=== PATIENT | female | born 2000 | race Caucasian/White ===

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

== ENCOUNTER 2019-04-27 14:48 | Outpatient (REF) | payer MEDICAID, SELFPAY ==
[2019-04-30 14:26] LABS: Chlamydia Result Negative (Negative); GC Result Negative (Negative)
== END 2019-04-27 15:08 ==
LOC: LBN 14:48
PROVIDERS: PCP Family Medicine; Visit Provider Nurse Practitioner Family
DX: Z11.3 Encounter for screening for infections with a predominantly sexual mode of transmission (principal)
CPT/HCPCS: 87491; 87591

== ENCOUNTER 2021-06-26 03:00 | Outpatient (CLI) | payer OTHER, MEDICAID, SELFPAY ==
--- NOTE | 2021-06-26 07:00 | DI.US_ITS ---
Exam(s) US OB 1ST TRIMESTER EXAM: US OB 1ST TRIMESTER CLINICAL HISTORY: ? viability,z34.90. TECHNIQUE: First trimester obstetrical ultrasound was performed. COMPARISON: No exams were available for comparison FINDINGS: Uterus is anteverted, measuring 9.5 cm length by 6.1 AP by 8.7 cm. There is an area of fluid in the right-side of the uterine fundus level which may represent a gestati onal sac. This measures approximately 2 by 1 cm. Does not appear to contain no obvious pole n or visible yolk sac. Maternal ovaries: Both ovaries appear unremarkable. There is some fluid in the cul-de-sac and left adnexa. IMPRESSION:: Intrauterine fluid-probable gestational sac without an obvious yolk sac nor pole noted therein. There is some free fluid in the cul-de-sac and left adnexa Correlation with test recommended. DATA REPOSITORY:
== END 2021-06-26 03:20 ==
PROVIDERS: PCP Family Medicine; Visit Provider Obstetrics & Gynecology
DX: Z34.91 Encounter for supervision of normal pregnancy, unspecified, first trimester (principal)
CPT/HCPCS: 76801

== ENCOUNTER 2021-06-26 11:38 | Outpatient (CLI) | payer OTHER, MEDICAID, SELFPAY | END 2021-06-26 11:39 | disposition home or self-care (01) | LOC: LBO 11:40 | PROVIDERS: PCP Family Medicine; Visit Provider Obstetrics & Gynecology Gynecology | DX: O03.9 Complete or unspecified spontaneous abortion without complication (principal); Z67.91 Unspecified blood type, Rh negative | CPT/HCPCS: 36415; 86850; 86900; 86901; 90384; 84702 ==

== ENCOUNTER 2021-07-12 20:25 | Emergency (ER) | payer OTHER, MEDICAID, SELFPAY ==
[2021-07-12 20:35] VITALS: BP 130/74; PULSE 85; RESP 16; TEMP 37.1; O2SAT 100
--- NOTE | 2021-07-12 20:43 | W.ED.GENAD ---
Discharge Plan Disposition Patient Disposition: HOME Condition: Stable Discharge Details Clinical Impression: Miscarriage, threatened, early Primary Care Provider: Mariola Hoff ED Provider: Lashay Thomas Home Meds and New Rx's Prescriptions: No Action prenat.vits,cheryl,[id number] Tablet 1 tab PO DAILY 0RF Discharge Instructions Instructions: Threatened Miscarriage (ED) Additional Instructions: At this time looks like you may be at risk for a miscarriage. Please follow-up with an ultrasound tomorrow as diagnostic imaging instruct you. Call women's wellness in the a.m. to discuss the recommendations. Return to the ER for any worsening vaginal bleeding, soaking through 2 pads an hour or more, feeling weak dizzy lightheaded or near faint. Increase oral fluids, eat regularly. You may take Tylenol every 4-6 hours as needed for abdominal cramping. Referrals: Mariola Hoff [Primary Care Provider] - Mae Ulloa DO [OSTEOPATHIC DOCTOR] - 2 days Medical Decision Making 21-year-old female presents to the ER with chief complaint of abdominal cramping and past a clot and some vaginal spotting approximately 2 hours prior to arrival. Patient states that she went to the bathroom and passed a clot greater than one quarter dark maroon in color and since then has had some abdominal cramping. She also reports some spotting with urination here on arrival. She is prima . Approximately 8 weeks per ultrasound. She is Rh- and received RhoGam June 26. 2217: CBC, BMP within normal limits, urinalysis shows no evidence for urinary tract infection no leukocytes no nitrites. Beta hCG quant is 9009 which is moderately decreased compared to her last visit on June 26 which at that time it was 94,000 Pelvic exam performed with Sammie LONG as witness through the entire exam. Patient tolerated well. Cervix was visualized with closed cervical os however there is a constant bloody ooze from the cervical os. There was blood in the vaginal canal with small clots. Discussed plan of care with patient and threatened miscarriage. Instructed to present tomorrow for an ultrasound and either follow-up in the ER for results or with women's wellness. Instructed to increase oral fluids and take Tylenol if needed. Patient verbalized understanding. I did discuss strict return instructions and to return to the ER sooner if soaking through more than 2 pads an hour, feeling lightheaded dizzy or faint. Patient verbalized understanding. This text was generated using [employer] dictation system, please disregard any oddities of phrase or misspellings. Medical Records Medical records reviewed: Yes I reviewed the patient's medical records. Medical records narrative: Patient is Rh- and received RhoGam June 26, 2021 according to records on June 26, 2021 hCG quant was 94,923 HPI General Date/Time Provider Initiated Documentation: 07/12/21 20:31. Limitations to Documentation: no limitations. Information obtained by: patient, RN notes reviewed and old records reviewed. HPI Narrative: 21-year-old female presents to the ER with chief complaint of abdominal cramping and past a clot and some vaginal spotting approximately 2 hours prior to arrival. Patient states that she went to the bathroom and passed a clot greater than one quarter dark maroon in color and since then has had some abdominal cramping. She also reports some spotting with urination here on arrival. She is prima . Approximately 8 weeks per ultrasound. She is Rh- and received RhoGam June 26. Related Data Home Medications Medication Instructions Recorded Confirmed prenat.vits,cheryl,[id number] 1 tab PO DAILY 06/15/21 07/12/21 Allergies Allergy/AdvReac Type Severity Reaction Status Date / Time Penicillins AdvReac Intermediate Verified 07/12/21 20:51 ENVIRONMENTAL Allergy Mild Uncoded 07/12/21 20:51 General SHARLENE: 3 Review of Systems All systems reviewed & are unremarkable except as noted in HPI and below Gastrointestinal Gastrointestinal: Reports abdominal pain (cramping) Genitourinary Genitourinary: Reports as per HPI and Reports abnormal vaginal bleeding PFSH All Active Problems (Updated 07/12/21 @ 22:24 by Lashay Thomas) Miscarriage, threatened, early (Acute) Rh negative state in antepartum period (Acute) Spontaneous (Acute) Early stage of (Acute) Dysmenorrhea (Acute) Family History Father Hypertension Mother Fibromyalgia Social History Smoking/Tobacco Use Status: Never Smoking risk assessment performed?: Yes Alcohol Intake: never Drug use: Never Substance use type: does not use Counseling given: No Do you feel safe at home: Yes Do you feel safe in your relationship?: Yes Female Reproductive History Menstrual control method: none History History 0 Para 0 Hx # Term Pregnancies Multiple births Hx # Pregnancies Ectopic pregnancies AB induced Hx Number of Living Children AB spontaneous Exam Narrative Exam Narrative: Constitutional: Alert and oriented x3. Appears stated age. Normal body habitus. Head: Normocephalic, no trauma. Eyes: Pupils PERRL, Red reflex noted, EOM's intact. Eyelids symmetrical without lesions, discharge, or swelling. Chest: RRR, Normal S1, S2, distal pulses intact. Resp: Lungs clear to auscultation bilaterally, no wheezes, rales, or rhonchi. Abdomen: Soft, non-distended, Normoactive bowel sounds all 4 quads. : See Below Musculoskeletal: Normal gait, 5/5 strength to all four extremities. Skin: No suspicious rashes or lesions. Capillary refill less than 2 sec. Neurologic: Cranial nerves II-XII intact. Alert and oriented x 3. Motor: No deficits noted. Sensory: Intact bilaterally all 4 extremities. Reflexes: DTR's intact bilaterally.. Hematologic/Lymphatic: No ecchymosis, no lymphadenopathy. External Female Exam: normal external appearance Speculum Exam - Vagina: vaginal bleeding Speculum Exam - Cervix: closed (However, steady bloody ooze from Cevical os) and no lesions OB/External & Speculum: vaginal bleeding
[2021-07-12 21:18] LABS: Bilirubin Negative (Negative); Blood Trace-intact (Negative); Clarity Clear (Clear); Glucose Negative (Negative); Ketones Negative (Negative); Leukocyte Esterase Negative (Negative); Nitrite Negative (Negative); Specific Gravity >= 1.030 (1.005-1.025); Urobilinogen 0.2 EU/dL (Up TO 0.2)
[2021-07-12 21:23] LABS: Bacteria Rare HPF (Negative); C & S Indicated? No; Casts Negative LPF (Negative); Crystals Negative HPF (Negative); Epithelial Cells Rare HPF (Negative); Mucus Negative (Negative); RBC 0-2 HPF (0-2); WBC Negative HPF (0-5)
[2021-07-12 21:26] LABS: Abs Immature Grans 0.03 10^3/uL (0.0-0.06); Absolute Basophil Count 0.06 10^3/uL (0.0-0.2); Absolute Eosinophil Count 0.05 10^3/uL (0.0-0.7); Absolute Monocyte Count 0.49 10^3/uL (0.1-0.8); Absolute Neutrophil Count 5.71 10^3/uL (1.2-6.7); Basophils % 0.7; Eosinophils % 0.6; HCT 36.7 % (36.0-46.0); HGB 12.4 g/dL (11.2-15.7); Immature Grans % 0.3; Lymphocytes % 28.3; MCH 29.1 pg (27.0-33.0); MCHC 33.8 % (32.0-36.0); MCV 86.2 fL (80-95); MPV 10.1 fL (8.0-11.0); Monocytes % 5.5; Neutrophils % 64.6; Nucleated RBC 0 %; Platelet Count 236 10^3/uL (130-400); RBC 4.26 10^6/uL (3.93-5.22); RDW-SD 40.8 fL; WBC 8.84 10^3/uL (4.4-10.8)
[2021-07-12 22:02] LABS: Anion Gap 12.4 mmol/L (3-11); BUN 9 mg/dL (7-18); CO2 24.6 mmol/L (21.0-32.0); CREATININE 0.6 mg/dL (0.55-1.02); Calcium 9.4 mg/dL (8.5-10.1); Chloride 101 mmol/L (98-107); Glucose 96 mg/dL (74-106); HCG Quant, Pregnancy 9009 mIU/mL (1-3); Potassium 3.7 mmol/L (3.5-5.1); Sodium 138 mmol/L (136-145)
--- NOTE | 2021-07-12 22:28 | NUR.NOTE ---
ultrasound Requisition faxed to [facility] for 07/13/21. Patient will call [facility] to see if she can be seen 07/13/21 after Ultrasound, otherwise she will f/u in ED.Nursing Note:
== END 2021-07-12 22:32 | disposition home or self-care (01) ==
PROVIDERS: Emergency Provider Registered Nurse Emergency; PCP Family Medicine
DX: O20.0 Threatened abortion (principal); Z3A.08 8 weeks gestation of pregnancy
CPT/HCPCS: 36415; 80048; 99284; 81003; 81015; 84702; 85025; 99283

== ENCOUNTER 2021-07-20 03:20 | Outpatient (CLI) | payer OTHER, MEDICAID, SELFPAY ==
[2021-07-20 13:59] LABS: HCG Quant, Pregnancy 281 mIU/mL (1-3)
== END 2021-07-20 03:21 | disposition home or self-care (01) ==
LOC: LBO 03:20
PROVIDERS: PCP Family Medicine; Visit Provider Obstetrics & Gynecology
DX: O20.0 Threatened abortion (principal)
CPT/HCPCS: 36415; 84702

== ENCOUNTER 2021-07-28 02:49 | Outpatient (CLI) | payer OTHER, MEDICAID, SELFPAY ==
[2021-07-28 11:41] LABS: HCG Quant, Pregnancy 57 mIU/mL (1-3)
== END 2021-07-28 02:50 | disposition home or self-care (01) ==
LOC: LBO 02:49
PROVIDERS: Obstetrics & Gynecology; PCP Family Medicine; Visit Provider Advanced Practice Midwife
DX: O20.0 Threatened abortion (principal)
CPT/HCPCS: 36415; 84702

== ENCOUNTER 2021-08-04 04:27 | Outpatient (CLI) | payer OTHER, MEDICAID, SELFPAY ==
[2021-08-04 12:39] LABS: HCG Quant, Pregnancy 21 mIU/mL (1-3)
== END 2021-08-04 04:28 | disposition home or self-care (01) ==
LOC: LBO 04:27
PROVIDERS: PCP Family Medicine; Visit Provider Obstetrics & Gynecology
DX: O03.9 Complete or unspecified spontaneous abortion without complication (principal)
CPT/HCPCS: 36415; 84702

== ENCOUNTER 2021-08-11 03:24 | Outpatient (CLI) | payer OTHER, MEDICAID, SELFPAY ==
[2021-08-11 11:33] LABS: HCG Quant, Pregnancy 8 mIU/mL (1-3)
[2021-08-12 10:15] LABS: HIV-1/2 Ag & Ab Screen Negative (Negative)
[2021-08-12 10:56] LABS: Hepatitis A Antibody IgM Negative (Negative); Hepatitis B Core Antibody Negative (Negative); Hepatitis B surface Ag Negative (Negative); Hepatitis C Ab w Rflx HCV PCR Negative (Negative)
[2021-08-12 11:49] LABS: Syphilis Serology (RPR) Negative (Negative)
[2021-08-12 15:25] LABS: Chlamydia Result Negative (Negative); GC Result Negative (Negative)
== END 2021-08-11 03:25 | disposition home or self-care (01) ==
LOC: LBO 03:24
PROVIDERS: PCP Family Medicine; Visit Provider Obstetrics & Gynecology
DX: A64 Unspecified sexually transmitted disease (principal); O03.9 Complete or unspecified spontaneous abortion without complication; Z11.3 Encounter for screening for infections with a predominantly sexual mode of transmission; Z11.4 Encounter for screening for human immunodeficiency virus [HIV]
CPT/HCPCS: 36415; 86704; 86709; 86803; 87340; 87389; 87491; 87591; 84702; 86592; 87480; 87510; 87660

== ENCOUNTER 2021-08-11 15:42 | Outpatient (REF) | payer OTHER, MEDICAID, SELFPAY | END 2021-08-11 15:43 | disposition home or self-care (01) | LOC: LBN 15:42 | PROVIDERS: PCP Family Medicine; Visit Provider Obstetrics & Gynecology ==

== ENCOUNTER 2021-09-08 01:42 | Outpatient (CLI) | payer OTHER, MEDICAID, SELFPAY ==
[2021-09-08 12:37] LABS: HCG Quant, Pregnancy 2 mIU/mL (1-3)
== END 2021-09-08 01:43 | disposition home or self-care (01) ==
LOC: LBO 01:43
PROVIDERS: PCP Family Medicine; Visit Provider Obstetrics & Gynecology
DX: N91.0 Primary amenorrhea (principal)
CPT/HCPCS: 36415; 84702

== ENCOUNTER 2023-05-30 03:57 | Outpatient (CLI) | payer BC, SELFPAY ==
[2023-05-30 15:37] LABS: Panorama Kit Sent via Fed Ex
[2023-05-30 15:51] LABS: Abs Immature Grans 0.02 10^3/uL (0.0-0.06); Absolute Basophil Count 0.05 10^3/uL (0.0-0.2); Absolute Eosinophil Count 0.02 10^3/uL (0.0-0.7); Absolute Lymphocyte Count 1.94 10^3/uL (1.2-3.4); Absolute Monocyte Count 0.44 10^3/uL (0.1-0.8); Absolute Neutrophil Count 6.43 10^3/uL (1.2-6.7); Basophils % 0.6; Eosinophils % 0.2; HCT 34.2 % (36.0-46.0); Immature Grans % 0.2; Lymphocytes % 21.8; MCH 29.6 pg (27.0-33.0); MCHC 35.1 % (32.0-36.0); MCV 84 fL (80-95); MPV 10.8 fL (8.0-11.0); Monocytes % 4.9; Neutrophils % 72.3; Platelet Count 235 10^3/uL (130-400); RBC 4.06 10^6/uL (3.93-5.22); RDW 13.2 % (11.7-14.6); RDW-SD 40.1 fL
[2023-05-30 23:47] LABS: Hepatitis B Surface Ag Negative (Negative)
[2023-05-31 00:15] LABS: Hepatitis C Ab w Rflx HCV PCR Negative (Negative)
[2023-05-31 00:27] LABS: HIV-1/2 Ag & Ab Screen Negative (Negative)
[2023-05-31 10:53] LABS: Varicella IgG Antibody Negative (See Note)
[2023-05-31 10:58] LABS: Rubella IgG Ab (UVM) Positive (See Note)
[2023-06-01 16:27] LABS: Syphilis IgG w/Reflex Nonreactive (Nonreactive)
[2023-06-07 12:16] LABS: Specimen WB Whole Blood
[2023-06-14 13:41] LABS: Result Summary NEGATIVE; Specimen WB Whole Blood
== END 2023-05-30 03:58 | disposition home or self-care (01) ==
PROVIDERS: Advanced Practice Midwife; PCP Family Medicine; Visit Provider Advanced Practice Midwife
DX: Z34.91 Encounter for supervision of normal pregnancy, unspecified, first trimester
CPT/HCPCS: 36415; 81220; 81222; 81329; 86787; 86803; 86850; 86900; 86901; 87340; 87389; 85025; 86762; 86780; 86870

== ENCOUNTER 2023-05-30 14:10 | Outpatient (REF) | payer BC, SELFPAY ==
[2023-05-30 17:02] LABS: *AMPHETAMINES SCREEN URINE Negative (Negative); *BARBITURATES SCREEN URINE Negative (Negative); *BENZODIAZEPINES SCREEN URINE Negative (Negative); Cannabinoids THC Negative (Negative); Cocaine Screen,Urine Negative (Negative); METHADONE URINE SCREEN Negative (Negative); OPIATES URINE SCREEN Negative (Negative)
[2023-05-30 17:14] LABS: Tricyclic Antidepressants Negative (Negative)
[2023-06-03 11:10] LABS: Misc Referral (UVM) See Comments
[2023-06-04 10:13] LABS: Buprenorphine Negative ng/mL (Cutoff: 5.0); Norbuprenorphine Negative ng/mL (Cutoff: 2.5)
== END 2023-05-30 14:11 | disposition home or self-care (01) ==
LOC: LBN 14:10
PROVIDERS: PCP Family Medicine; Visit Provider Advanced Practice Midwife
DX: Z34.91 Encounter for supervision of normal pregnancy, unspecified, first trimester
CPT/HCPCS: 80307; 80348; 80354; 87086

== ENCOUNTER → 2023-09-20 04:20 | Outpatient (CLI) | payer BC, SELFPAY ==
--- NOTE | 2023-09-20 06:45 | DI.US_ITS ---
Exam(s) US OB VALENTIN WEIGHT EXAM: US OB VALENTIN WEIGHT CLINICAL HISTORY: uterine fibroid affecting ,d25.9,O34.10. TECHNIQUE: Transabdominal obstetrical ultrasound performed. COMPARISON: US POCUS EXAM from 05/16/2023 FINDINGS: Transabdominal obstetrical ultrasound performed. FINDINGS: Number of fetuses: One. position: Vertex. heart rate: 154 bpm. Placental location: Anterior no evidence of previa. BIOMETRIC DATA: EFW: 1298 grms 43% Composite Age: 29+ 2 EDC: 04 December 2023 Amniotic fluid index: 15.0 cm. Amount of fluid is within normal limits. An anterior fibroid is noted measuring 2.9 x 1.4 x 2.5 IMPRESSION: 1. Biometric measurements correspond to 29 weeks 2 days, within the normal range. 2. Normal VALENTIN. 3. Small anterior fibroid. DATA REPOSITORY:
== END ==
PROVIDERS: PCP Family Medicine; Visit Provider Advanced Practice Midwife
DX: O34.13 Maternal care for benign tumor of corpus uteri, third trimester (principal); D25.9 Leiomyoma of uterus, unspecified; Z3A.28 28 weeks gestation of pregnancy
CPT/HCPCS: 76816

== ENCOUNTER 2023-09-20 05:01 | Outpatient (CLI) | payer BC, SELFPAY ==
[2023-09-20 10:53] LABS: HCT 30.4 % (36.0-46.0); HGB 10.1 g/dL (11.2-15.7); MCH 29.2 pg (27.0-33.0); MCHC 33.2 % (32.0-36.0); MCV 88 fL (80-95); MPV 9.8 fL (8.0-11.0); Platelet Count 238 10^3/uL (130-400); RBC 3.46 10^6/uL (3.93-5.22); RDW 12.6 % (11.7-14.6); RDW-SD 40.4 fL; WBC 10.28 10^3/uL (4.4-10.8)
[2023-09-20 11:05] LABS: Glucose,1 Hr (Glucola) 91 mg/dL (80-140)
== END 2023-09-20 05:02 | disposition home or self-care (01) ==
LOC: LBO 05:01
PROVIDERS: PCP Family Medicine; Visit Provider Advanced Practice Midwife
DX: Z34.93 Encounter for supervision of normal pregnancy, unspecified, third trimester (principal); Z3A.28 28 weeks gestation of pregnancy
CPT/HCPCS: 36415; 82950; 85027; 86850; 90384

== ENCOUNTER 2023-10-04 14:39 | Outpatient (REF) | payer BC, SELFPAY ==
[2023-10-04 17:26] LABS: *AMPHETAMINES SCREEN URINE Negative (Negative); *BARBITURATES SCREEN URINE Negative (Negative); *BENZODIAZEPINES SCREEN URINE Negative (Negative); Cannabinoids THC Negative (Negative); Cocaine Screen,Urine Negative (Negative); METHADONE URINE SCREEN Negative (Negative); OPIATES URINE SCREEN Negative (Negative); Tricyclic Antidepressants Negative (Negative)
[2023-10-05 11:39] LABS: Fentanyl Scr w/Rfx Confirm Negative ng/mL (<1)
[2023-10-08 11:41] LABS: Buprenorphine Negative ng/mL (Cutoff: 5.0); Norbuprenorphine Negative ng/mL (Cutoff: 2.5)
== END 2023-10-04 14:40 | disposition home or self-care (01) ==
LOC: LBN 14:39
PROVIDERS: PCP Family Medicine; Visit Provider Obstetrics & Gynecology
DX: Z34.93 Encounter for supervision of normal pregnancy, unspecified, third trimester (principal); Z3A.30 30 weeks gestation of pregnancy
CPT/HCPCS: 80307; 80348

== ENCOUNTER → 2023-10-18 03:28 | Outpatient (CLI) | payer BC, SELFPAY ==
--- NOTE | 2023-10-18 10:45 | DI.US_ITS ---
Exam(s) US OB VALENTIN WEIGHT EXAM: US OB VALENTIN WEIGHT CLINICAL HISTORY: growth, check fibroid,d25.9,o34.10. TECHNIQUE: Transabdominal obstetrical ultrasound was performed. COMPARISON: US US OB VALENTIN WEIGHT from 09/20/2023 FINDINGS: There is a single viable intrauterine gestation with cardiac activity identified-141 bpm The fetus is presently in cephalic position . Amniotic fluid: There is upper normal amount of amniotic fluid with an VALENTIN of 22.32 cmcm. Placental location: The placenta is anterior grade 1,with no evidence of placenta previa. Dating parameters place this at approximately 33 weeks gestational age, implying JEMIMA of 10/2023. BPD measures 33 weeks and 3 days HC measures 33 weeks and 2 days AC measures 32 weeks and 4 days FL measures 32 weeks and 3 days Estimated weight is 8 gm-4 pounds 8 ounces Fetus is at the 39th percentile on the Hadlock scale. IMPRESSION:: Viable 3rd trimester gestation, as described above. Amount of amniotic fluid is upper normal. DATA REPOSITORY:
== END ==
PROVIDERS: PCP Family Medicine; Visit Provider Obstetrics & Gynecology
DX: Z34.93 Encounter for supervision of normal pregnancy, unspecified, third trimester (principal); O34.13 Maternal care for benign tumor of corpus uteri, third trimester; Z3A.30 30 weeks gestation of pregnancy
CPT/HCPCS: 76816

== ENCOUNTER → 2023-11-11 00:22 | Outpatient (CLI) | payer MEDICAID, SELFPAY ==
--- NOTE | 2023-11-11 15:23 | DI.US_ITS ---
Exam(s) US OB VALENTIN WEIGHT EXAM: US OB VALENTIN WEIGHT CLINICAL HISTORY: Uterine fibroids in , D25.9,O34.10 ?growth and assess fibroid size. TECHNIQUE: Transabdominal obstetrical ultrasound performed. COMPARISON: US US OB VALENTIN WEIGHT from 10/18/2023 FINDINGS:: Number of fetuses: One. position: Vertex. Placental location: Anterior no evidence of previa. Anterior fundal uterine fibroid noted measuring 3.6 x 1 by 3.1 cm compared with 3.1 x 1.9 x 2.7 cm pr ior exam. BIOMETRIC DATA: BPD: 88mm = 35+5 weeks HC: 334mm = 38+ 1 weeks AC: 327mm = 36+ 4 weeks FL: 67 mm = 34+2 weeks EFW: 2846 Gms = 50% Composite Age: 36+ 1 weeks JEMIMA: 08 December 2023 Heart Rate: 151 BPM Amniotic fluid index: 20.6 cm. Amount of fluid is visually within normal limits. IMPRESSION: size and weight are within the expected range. Slight increase in size of fundal fibroid. DATA REPOSITORY:
== END ==
PROVIDERS: PCP Family Medicine; Visit Provider Advanced Practice Midwife
DX: O34.10 Maternal care for benign tumor of corpus uteri, unspecified trimester (principal); D25.9 Leiomyoma of uterus, unspecified
CPT/HCPCS: 76816

== ENCOUNTER 2023-11-15 13:42 | Outpatient (REF) | payer MEDICAID, SELFPAY | END 2023-11-15 13:43 | disposition home or self-care (01) | LOC: LBN 13:42 | PROVIDERS: PCP Family Medicine; Visit Provider Advanced Practice Midwife | DX: Z34.90 Encounter for supervision of normal pregnancy, unspecified, unspecified trimester (principal) | CPT/HCPCS: 87081 ==

== ENCOUNTER 2023-11-17 08:13 | Outpatient (CLI) | payer MEDICAID, SELFPAY ==
[2023-11-17 14:27] LABS: HCT 29.1 % (36.0-46.0); HGB 9.5 g/dL (11.2-15.7); MCHC 32.6 % (32.0-36.0); MCV 80 fL (80-95); MPV 11.3 fL (8.0-11.0); Platelet Count 224 10^3/uL (130-400); RBC 3.65 10^6/uL (3.93-5.22); RDW 13.4 % (11.7-14.6); RDW-SD 38.6 fL; WBC 10.14 10^3/uL (4.4-10.8)
[2023-11-17] MEDS: IRON SUCROSE COMPLEX 200 MG in Normal Saline 100 ML 440 MG IVPB (14:29)
== END 2023-11-17 15:24 ==
LOC: BCD 08:13 → OBS 14:04
PROVIDERS: PCP Family Medicine; Visit Provider Advanced Practice Midwife
DX: O99.013 Anemia complicating pregnancy, third trimester (principal)
CPT/HCPCS: 85027; 96365; J1756

== ENCOUNTER 2023-11-30 01:35 | Outpatient (RCR) | payer MEDICAID, SELFPAY ==
[2023-11-23] MEDS: Normal Saline Flush 10 ML SYR IVP (13:06)
[2023-11-23] MEDS: IRON SUCROSE COMPLEX 200 MG in Normal Saline 100 ML 440 MG IVPB (13:06)
[2023-11-30 14:28] LABS: HGB 10.3 g/dL (11.2-15.7)
[2023-11-30] MEDS: IRON SUCROSE COMPLEX 200 MG in Normal Saline 100 ML 440 MG IVPB (14:42)
[2023-11-30] MEDS: Normal Saline Flush 10 ML SYR IVP (14:43)
== END 2023-11-30 23:59 | disposition home or self-care (01) ==
LOC: INF 01:35
PROVIDERS: PCP Family Medicine; Visit Provider Advanced Practice Midwife
DX: O99.013 Anemia complicating pregnancy, third trimester (principal)
CPT/HCPCS: 36415; 96365; 85018; J1756

== ENCOUNTER 2023-12-10 10:25 | Outpatient (CLI) | payer MEDICAID, SELFPAY ==
[2023-12-10 12:35] VITALS: BP 129/77; PULSE 81; TEMP 36.9
[2023-12-10 12:36] VITALS: BP 129/77; PULSE 81
--- NOTE | 2023-12-10 13:18 | W.PM.OBNL1 ---
Date of service: 12/10/23 Time of Service: 13:18 Pelvic Exam Dilation: 1.5 Effacement (%): 80 station: -3 Cervix Position: posterior Consistency: soft BISHOPS Score(Cervical Ripeness Score): 6 Nitrazine: Positive Ferning: Present Comments: SROM clear fluid confirmed Contractions Monitor Mode: External Contraction Frequency(min): none Fetus A Monitor: External (US) Heart Rate Baseline: 130 Presentation: Cephalic Variability: Moderate (6-25 BPM) Categories: Category I Accelerations: 15 X 15 Decelerations: None Amniotic Membrane Status: Ruptured Rupture Method: Spontaneous Amniotic Fluid: Clear Amount: moderate Date of Membrane Rupture: 12/09/23 Time of Membrane Rupture: 21:30 Assessment and Plan Assessment and plan (1) PROM (premature rupture of membranes): Status: Acute Assessment and plan: A: 23 yo G1 @ 40+2 wks; reactive NST/cat 1 tracing SROM clear confirmed, since 2129 yesterday; no labor though cvx is favorable (BS=6) GBS negative, Rh negative, cephalic presentation, vss P: Pt clearly and at multiple points in conversation declines induction of labor at this time I strongly suggested she set a date/time to return for induction if labor does not start Pt agrees to return tomorrow morning 0900 if no labor onset Will call for painful contractions q4-5 minutes, bleeding, or other warning signs we reviewed Discharged to home accompanied by her mother Qualifiers: PROM gestational age: full term Objective Pulse BP 81 129/77 12/10/23 12:36 12/10/23 12:36 Vital Signs Reviewed: Yes Objective Narrative Objective Narrative: Risks and benefits of IOL for PROM at term discussed with pt, i.e. infection, distress, arrested labor Afebrile, normotensive, NST is reactive, fluid is clear, GBS negative Pt is very firm she declines induction at this time, wishes to try activities at home to get contractions going Advised to avoid anything placed in the vagina at all, no sexual intercourse, tampons, or fingers Sx labor reviewed with pt, also reviewed warning sx i.e. fever, abd pain, vaginal irritation or change in discharge color, bleeding Baby is active today, AGA and favorable cervix (Khan score 6) Subjective Interval history since last seen: Her water broke at 2129 last night, clear fluid. Pt paged CNM at 0040 to notify and to report mild irregular contractions and that when they get stronger she will come in. The contractions stopped and she fell asleep eventually, waking up at 1000. She agrees to come in for an NST and ROM confirmation, adamantly declines induction of labor for PROM at this time, wishes to go home and wait for spontaneous onset of labor.
--- NOTE | 2023-12-10 13:41 | W.OBNST ---
Date of service: 12/10/23 Time of Service: 13:41 NST Evaluation Reason for NST Reasons for Nonstress Test: OTHER, SEE COMMENT Reason for NST Other: R/O rupture Gestational Age Gestational Age in Weeks and Days: 40 Weeks and 2Days Test and Monitor Explained Test/Monitor Explained: Test Explained, Monitor Explained and Patient Verbalized Understanding Vital Signs Blood Pressure: 129/77 Pulse: 81 Temperature: 98.4 F NST Information Date on Monitor: 12/10/23 Time on Monitor: 12:35 Date off Monitor: 12/10/23 Time off Monitor: 13:18 Total Time on Monitor: 43 NST Interventions: None Contraction Frequency: none NST Evaluation Patient States Movement: Present FHR Baseline: 125 Variability: Moderate 6-25 bpm Accelerations: 15x15 Decelerations: None NST Results: Reactive Note Ultrasound Done: N/A. NST Note Note: SROM confirmed, clear fluid Cvx 1-2/80% vtx -3 posterior, soft Pt insists she will go home now and return when labor begins She agrees to schedule IOL for tomorrow 0900 if no labor by then Warning sx reviewed in detail for when to call or come back to unit See Progress note NST Reviewed and Verified by: Rosalva Dalal
[2023-12-10 13:44] VITALS: BP 129/77; PULSE 81; TEMP 36.9
== END 2023-12-10 12:40 | disposition other institution (70) ==
LOC: BCD 10:26 → OBS 12:27
PROVIDERS: PCP Family Medicine; Visit Provider Advanced Practice Midwife
DX: O42.92 Full-term premature rupture of membranes, unspecified as to length of time between rupture and onset of labor (principal); Z3A.40 40 weeks gestation of pregnancy
CPT/HCPCS: 59025

== ENCOUNTER 2023-12-10 23:37 | Inpatient (IN) | payer MEDICAID, SELFPAY ==
[2023-12-10 23:57] VITALS: BP 129/81; PULSE 171; PULSE 88; O2SAT 98
[2023-12-10 23:58] VITALS: BP 129/81; PULSE 88; RESP 16; TEMP 36.5; O2SAT 98
--- NOTE | 2023-12-10 23:59 | W.PM.OBHPL1 ---
Date of service: 12/10/23 Time of Service: 23:59 Assessment and Plan Assessment and plan (1) PROM (premature rupture of membranes): Status: Acute Assessment and plan: A: 23 yo @ 40+3 wks, PROM x26 hrs clear fluid Was in for evaluation yesterday and declined admission or IOL, Spontaneous onset of contractions 2230 (this evening) GBS neg, Rh neg, afebrile, normotensive Category 1 tracing, early labor, favorable cvx (BS 7-8) P: Admit to BC, CBC, T&S; minimal vaginal exams Expectant management, pt desires unmedicated labor at this time Consider ATB prophylaxis if ROM >36 hrs, Anticipate Qualifiers: PROM gestational age: full term PROM onset of labor timing: onset of labor more than 24 hours following rupture Qualified Code(s): O42.12 - Full-term premature rupture of membranes, onset of labor more than 24 hours following rupture OB-HPI Labor/Delivery History of Present Illness Reason for Visit: Labor Chief Complaint: Uterine Contractions; Maternal Discomfort , Associated Signs and Symptoms of Maternal Discomfort: contractions started 2230, no bleeding, no vomiting. Confirmed PROM for 26 hours.. JEMIMA Calculator Estimated Delivery Date Method Current WG Current Estimate 12/08/23 LMP (Certain) 40w 3d Other Estimates 12/12/23 Ultrasound #1 39w 6d History of Present Expected Delivery Route/Plan - CNM FOB/ - Juan Manuel Short (first child) BB- Varicella non-immune, offer vaccine Mom Mae & Juan Manuel for labor support, wants to be active, use nitrous, shower, tub, dim lights GBS negative Specific Issues/Plan 1. Pt's sister has Brugada Syndrome, pt w/hx tachycardia & palpitations 1a. Accepts referral for M consult, level 2 ultrasound & genetics teleconsult 1b. Level 2 scan is nml, retroplacental fibroid, [facility] recommends referral to either cardiology or genetics, & inform Peds of fam hx- [place] [facility] [place] testing. 1c. Growth US at 28 weeks: 43rd%, VALENTIN 15, small anterior fibroid, 1d. 32 wks: EFW in 39th%, VALENTIN 22, cephalic, anterior placenta, fibroid 3.1 X 1.9 X 2.7 1e. 36 wks: EFW 50th percentile, VALENTIN 20, fundal fibroid measures 3.6 x 1.0 x 3.1 2. Hx migraine and anxiety, no meds, PHQ9 score is 2 3. 5P's screen positive, UDS @ initial & 28 wks 4. Rh negative, partner RHpos. RhoGam @ 28 wks 09/20/23 4a. Had spotting 1st trimester, RhoGam given at [facility] 5. cfDNA low risk male, CF Neg/SMA Neg 6. Anemia @ 28 wks, hgb 10.1, start oral iron tabs 11/14 - hgb 9.4, iron infusions ordered 6a. 11/29 - Hgb 10.3, 12/06 - hgb 10.9 Assessment: History Reviewed & Current Review of Systems Narrative: ROS completed and found to be noncontributory PFSH All Active Problems (Updated 12/11/23 @ 00:04 by Rosalva Dalal) PROM (premature rupture of membranes) (Acute) Anemia affecting (Acute) Uterine fibroids affecting (Acute) Susceptible to varicella (non-immune), currently (Acute) History of palpitations in adulthood (Acute) Family history of Brugada syndrome (Acute) pt's sister Migraine (Chronic) (Acute) Acute adjustment disorder with mixed anxiety and depressed mood (Acute) Rh negative state in antepartum period (Acute) Medical History (Updated 12/11/23 @ 00:04 by Rosalva Dalal) Family history of cardiac disorder in mother pt's mother has hole in her heart. Patent Foramen ovale Anxiety Depressed affect Spontaneous Missed menses Delayed menses STI (sexually transmitted infection) Dysmenorrhea Family History Father Hypertension Mother Fibromyalgia Social History Smoking/Tobacco Use Status: Never Smoking risk assessment performed?: Yes Alcohol Intake: never Drug use: Never Substance use type: does not use Counseling given: No Do you feel safe at home: Yes Do you feel safe in your relationship?: Yes Female Reproductive History Menstrual control method: none History History 2 Para 0 Hx # Term Pregnancies 0 Multiple births 0 Hx # Pregnancies 0 Ectopic pregnancies 0 AB induced 0 Hx Number of Living Children 0 AB spontaneous 1 Past Pregnancies Del. Date GA/Weeks # Preg Succ Route Wgt Sex Labor Lgth Anesthesia Location Prov Complic 07/28/21 12 No Meds Allergies and Home Medications Allergies Allergy/AdvReac Type Severity Reaction Status Date / Time Penicillins AdvReac Intermediate OTHER Verified 12/07/23 11:14 lactose AdvReac Diarrhea Verified 12/07/23 11:14 ENVIRONMENTAL Allergy Mild OTHER Uncoded 12/07/23 11:14 Home Medications ?Medication ?Instructions ?Recorded ?Confirmed ?Type prenat.vits,cheryl,pyh-syaf-utrus 1 tab PO DAILY 06/15/21 12/11/23 History ferrous sulfate 325 mg (65 mg 325 mg PO DAILY #60 tabs 09/20/23 12/11/23 Rx iron) tablet Exam Physical Exam Vital signs: Pulse BP Pulse Ox 171 H 129/81 98 12/10/23 23:57 12/10/23 23:57 12/10/23 23:57 Vital Signs Reviewed: Yes Constitutional Constitutional: mild distress, average body habitus and cooperative Detailed Labor and Delivery Exam Dilation: 3 Effacement (%): 90 station: -2 Cervix position: posterior Consistency: soft DORSEY Score(Cervical Ripeness Score): 7 Amniotic Membrane Status: Ruptured (since 2129 on 12/08) Rupture Method: Spontaneous Amniotic Fluid: Clear Nitrazine: Positive Ferning: Present Monitor Mode: External Contraction Frequency(min): 3-5 Contraction Intensity: Mild/Moderate Fetus A Heart Rate Baseline: 130 Monitor Accelerations: Present Monitor Decelerations: None Variability: Moderate (6-25 BPM) Categories: Category I Est. Weight: 6 lb 9.822 oz Est. Weight: 3000 gms Date of Membrane Rupture: 12/09/23 Time of Membrane Rupture: 21:30 HEENT Exam HEENT Exam: Normal Neck Exam Neck Exam: Normal Chest/Brest/Axilla Exam Chest Exam: Normal Breast Exam Breast Exam: Not Done Respiratory Exam Respiratory Exam: Normal Cardiovascular Exam Cardiovascular Exam: Normal Abdominal Exam Abdominal Exam: Normal Rectal Exam Rectal Exam: Normal Exam Exam: Normal Extremities Exam Extremities Exam: Normal Back/Spine/Pelvis Exam Back Exam: Normal Pelvis Adequate: Yes Skin Exam Skin Exam: Normal Neurological Exam Neurological Exam: Normal Psychiatric Exam Psychiatric Exam: Normal Results Results Group Beta Strep: Negative Blood Type: O- Rubella Status: Immune Varicella Immunity: Nonimmune Risk Assessment Risk for Shoulder Dystocia Historical/Initial OB: NEGATIVE FOR: Pelvic Abnormality, Pre- BMI>30, Previous Shoulder Dystocia or Previous Macrosomia 36 Weeks: NEGATIVE FOR: Current Gestational DM, EFW>4500gms or Maternal Weight Gain>40lbs 40 Weeks: NEGATIVE FOR: EFW> 4500 gms, Maternal Weight Gain >40lb or Post Dates Increased Risk?: No Delivery Plan @ 36wks: Delivery Plan @ 40 wks: Risk for Pre-Eclampsia Date Initiated/Initials: not indicated, JK Yes, if one or more: NEGATIVE FOR: Hx Pre-E/Gest HTN, Chronic HTN, Multiple Gestation, Pre-gestational DM, Renal Disease, Systemic Lupus or APA Syndrome Yes, if 2 or more: POSITIVE FOR: Nulliparity; NEGATIVE FOR: Age>= 35 yrs, >10yr btwn pregnancies, BMI>30, ethinicty, Mother/Sister w/ Pre-E or Previous IUGR Risk for Post- Hemorrhage Initial: NEGATIVE FOR: Multiple Gestation, Previous PPH, Known Clotting Deficiency, Grand Multiparity or Anticoagulation 36 Weeks: POSITIVE FOR: Anemia, hgb<10; NEGATIVE FOR: Low platelets(thrombocytopenia), Gestational HTN or Pre-E, Polyhydraminios or EFW>4500gms 40 Weeks: NEGATIVE FOR: Anemia, hgb<10, Low platelets (thrombocytopenia), Gestation HTN or Pre-E, Polyhydraminios or EFW>4500gms At Risk?: No Interventions: received iron infusions for anemia Risks Reviewed Risks Reviewed Upon Admission: Yes
[2023-12-11] VITALS (76 sets, daily range): BP systolic 109–145; BP diastolic 56–89; PULSE 73–140; RESP 16–18; TEMP 36.4–37.2; O2SAT 95–100; BMI 27.4
[2023-12-11 00:30] LABS: HGB 11.1 g/dL (11.2-15.7); MCH 27.8 pg (27.0-33.0); MCHC 32.6 % (32.0-36.0); MCV 85 fL (80-95); MPV 11.3 fL (8.0-11.0); Platelet Count 190 10^3/uL (130-400); RBC 3.99 10^6/uL (3.93-5.22); WBC 12.56 10^3/uL (4.4-10.8)
[2023-12-11 00:48] LABS: RDW 20.1 % (11.7-14.6); RDW-SD 60.8 fL
--- NOTE | 2023-12-11 07:50 | W.PM.OBNL1 ---
Date of service: 12/11/23 Time of Service: 07:50 Informed Consent Informed Consent: Other (IV access for hydration and antibiotics) Pelvic Exam Dilation: 6 Effacement (%): 100 station: -1 Cervix Position: anterior Consistency: soft Contractions Monitor Mode: Palpation Contraction Frequency(min): 4-5 Intensity: Moderate Fetus A Monitor: Doppler Heart Rate Baseline: 130 FHR Rhythm: Regular Characteristics: Normal Amniotic Membrane Status: Ruptured Assessment and Plan Assessment and plan (1) PROM (premature rupture of membranes): Status: Acute Assessment and plan: A: Spontaneous progression to 6/100% -1 Maternal fatigue, prolonged ROM >34 hrs Reassuring FHT per godwin, pt afebrile P: Begin IV PCN prophylaxis, based on pt report allergy to PCN is unlikely Discussed choice of ATB and overall pt status with Dr. Staton Pt gives consent to IV hydration and PCN prophylaxis I reviewed pain management options & recommended pitocin augmentation now Will continue discussion once IV therapies are in progress Qualifiers: PROM onset of labor timing: onset of labor more than 24 hours following rupture PROM gestational age: full term Qualified Code(s): O42.12 - Full-term premature rupture of membranes, onset of labor more than 24 hours following rupture Objective Abnormal lab results 12/11/23 Range/Units 00:22 WBC 12.56 H (4.4-10.8) 10^3/uL Hgb 11.1 L (11.2-15.7) g/dL Hct 34.0 L (36.0-46.0) % RDW 20.1 H (11.7-14.6) % MPV 11.3 H (8.0-11.0) fL Temp Pulse Resp BP Pulse Ox 98.2 F 79 16 128/89 99 12/11/23 06:02 12/11/23 06:02 12/11/23 06:02 12/11/23 06:02 12/11/23 06:02 Laboratory Results WBC 12.56 10^3/uL (4.4-10.8) H 12/11/23 00:22 RBC 3.99 10^6/uL (3.93-5.22) 12/11/23 00:22 Hgb 11.1 g/dL (11.2-15.7) L 12/11/23 00:22 Hct 34.0 % (36.0-46.0) L 12/11/23 00:22 MCV 85 fL (80-95) 12/11/23 00:22 MCH 27.8 pg (27.0-33.0) 12/11/23 00:22 MCHC 32.6 % (32.0-36.0) 12/11/23 00:22 RDW 20.1 % (11.7-14.6) H 12/11/23 00:22 Plt Count 190 10^3/uL (130-400) 12/11/23 00:22 MPV 11.3 fL (8.0-11.0) H 12/11/23 00:22 ABO/Rh O Negative 12/11/23 00:22 Antibody Screen POSITIVE 12/11/23 00:22 Antibody Identification Anti-D 12/11/23 00:22 Vital Signs Reviewed: Yes Subjective Interval history since last seen: Pt has ambulated, showered, using nitrous and now in the tub. States she is feeling tired, requests vaginal exam, asking about other choices in pain management. We discussed IV narcotic analgesia and epidural anesthesia, pt is considering these options. pt consents to IV access and IV hydration, she also consents to IV antibiotics for prophylaxis due to prolonged ROM @ 34 hrs. We discussed the notation in her chart of PCN allergy, neither she nor her mother recall why this is in the chart, deny hx of adverse even during pt's lifetime.
[2023-12-11] MEDS: Lactated Ringers 1,000 ML 999 ML IV (08:20)
[2023-12-11] MEDS: Normal Saline Flush 10 ML SYR IVP ×2 (08:20→10:09)
[2023-12-11] MEDS: Penicillin G POT. 5,000,000 UNITS in Normal Saline 100 ML 200 UNITS IVPB (08:42)
--- NOTE | 2023-12-11 09:56 | W.PM.OBNL1 ---
Date of service: 12/11/23 Time of Service: 09:57 Informed Consent Informed Consent: Risk,Benefits,Alternatives Discussed and Other (narcotic analgesia) Contractions Monitor Mode: External (Novii) Contraction Frequency(min): q2-3 Contraction Duration(sec): 50 Intensity: Moderate Fetus A Monitor: External (US) (Novii) Heart Rate Baseline: 140 Variability: Moderate (6-25 BPM) Categories: Category I Accelerations: 15 X 15 Decelerations: None Amniotic Membrane Status: Ruptured Assessment and Plan Assessment and plan (1) PROM (premature rupture of membranes): Status: Acute Assessment and plan: A: Need for pain management, pitocin augmentation indicated Has received first dose of PCN and bolus of LR Category 1 tracing P: Notified Peds of pt status (Dr. Hoffmann) Fentanyl 50 mcg ordered, recheck cvx 1030 Planning pitocin augmentation if cvx <8 cm dilation Anticipate today Qualifiers: PROM onset of labor timing: onset of labor more than 24 hours following rupture PROM gestational age: full term Qualified Code(s): O42.12 - Full-term premature rupture of membranes, onset of labor more than 24 hours following rupture Subjective Interval history since last seen: Got out of tub, using nitrous while resting in bed, requests narcotic analgesia. Discussed side effects of using fentanyl in small doses including sedation, perceived inadequate pain relief, and possibility of slowing labor progress which has already been slow, pt agrees to vaginal exam after initial narcotic dose and will consider agreeing to pitocin augmentation if progress is inadequate.
[2023-12-11] MEDS: fentaNYL 100 MCG/2 ML VIAL 50 MCG IVP ×2 (10:08→14:01)
[2023-12-11] MEDS: Lactated Ringers 1,000 ML 250 ML IV (11:26)
[2023-12-11] MEDS: Penicillin G POT. 3,000,000 UNITS in Normal Saline 50 ML 100 UNITS IVPB ×3 (12:34→22:00)
--- NOTE | 2023-12-11 13:04 | W.PM.OBNL1 ---
Date of service: 12/11/23 Time of Service: 13:04 Informed Consent Informed Consent: Augmentation of Labor and Risk,Benefits,Alternatives Discussed Pelvic Exam Dilation: 6 Effacement (%): 100 station: -1 Contractions Monitor Mode: External (Novii) Contraction Frequency(min): q2-4 Intensity: Moderate Fetus A Monitor: External (US) (Novii) Heart Rate Baseline: 140 Variability: Moderate (6-25 BPM) Categories: Category I Decelerations: None Amniotic Membrane Status: Ruptured Assessment and Plan Assessment and plan (1) PROM (premature rupture of membranes): Status: Acute Assessment and plan: A: Pt declined vaginal exam until now; no change from 0730 exam Had some rest from Fentanyl dose; finishing 2nd liter LR, voiding qs 2nd dose of PCN prophylaxis infusing now, category 1 tracing P: Begin pitocin augmentation, R&B reviewed with pt, she consents Offer all comfort measures as needed, fentanyl can be redosed as ordered Anticipate Qualifiers: PROM onset of labor timing: onset of labor more than 24 hours following rupture PROM gestational age: full term Qualified Code(s): O42.12 - Full-term premature rupture of membranes, onset of labor more than 24 hours following rupture
[2023-12-11] MEDS: Oxytocin/Normal Saline 30 UNIT/500 ML BAG 2 UNITS IV (13:24)
[2023-12-11] MEDS: Lactated Ringers 1,000 ML 150 ML IV ×2 (16:01→23:51)
--- NOTE | 2023-12-11 16:38 | W.PM.OBNL1 ---
Date of service: 12/11/23 Time of Service: 16:38 Informed Consent Informed Consent: Augmentation of Labor, Regional Anesthesia and Risk,Benefits,Alternatives Discussed Pelvic Exam Dilation: 6.5 Effacement (%): 100 station: 0 (vtx well applied to cvx which feels tight on scalp) Contractions Monitor Mode: External (Novii) Contraction Frequency(min): q2-4 Intensity: Moderate/Strong Fetus A Monitor: External (US) (Novii) Heart Rate Baseline: 140 Variability: Moderate (6-25 BPM) Categories: Category I (earlier category 2 due to periodic variable decels which have decreased with maternal position changes) Accelerations: 15 X 15 Decelerations: Early Amniotic Membrane Status: Ruptured Assessment and Plan Assessment and plan (1) PROM (premature rupture of membranes): Status: Acute Assessment and plan: A: Maternal fear and exhaustion, poor coping, need for effective pain management Active labor with pitocin augmentation, overall good descent & tolerance of labor P: PRO[employer] CONSULTANT paged for epidural placement Anticipate after pt more comfortable and rests well Qualifiers: PROM onset of labor timing: onset of labor more than 24 hours following rupture PROM gestational age: full term Qualified Code(s): O42.12 - Full-term premature rupture of membranes, onset of labor more than 24 hours following rupture Objective Vital Signs Reviewed: Yes Objective Narrative Objective Narrative: Afebrile, normotensive Amniotic fluid draining from introitus clear and blood tinged Category 1 tracing currently descent to 0 station, 6-7 cm dilation 3rd PCN dose infusing, Pitocin at 10 u/min, 3rd liter of LR up, voiding qs, pt supported bedside by her mother and Using nitrous constantly, had a 2nd dose of fentanyl IVP with good effect now wearing off Subjective Interval history since last seen: Pt crying, states I can't do this, reaffirms her fear of needles and interventions, states she really wants to avoid a c/s but she wants to be done. Advised that an effective epidural would allow her to feel less pain and possibly rest a little bit until it is time to push, pt consents to regional anesthesia.
[2023-12-11] MEDS: FentaNYL/ROPIvacaine 2 mcg/ml and 0.1% 200 ML CADD Cassette EP (18:00)
--- NOTE | 2023-12-11 18:17 | ANES.PREOP_ITS ---
General Info Date of Service Date Performed: 12/11/23 Height: 5 ft 2 in Weight: 68.039 kg Body Mass Index (BMI): 27.4 Meds Allergies and Home Medications Allergies Allergy/AdvReac Type Severity Reaction Status Date / Time lactose AdvReac Diarrhea Verified 12/07/23 11:14 ENVIRONMENTAL Allergy Mild OTHER Uncoded 12/07/23 11:14 Home Medication ?Medication ?Instructions ?Recorded prenat.vits,cheryl,ypk-[id number]-[id number] 1 tab PO DAILY 06/15/21 ferrous sulfate 325 mg (65 mg 325 mg PO DAILY #60 tabs 09/20/23 iron) tablet Current Visit Medications: Current Medications Generic Name Dose Route Start Last Admin Trade Name Freq PRN Reason Stop Dose Admin Diphenhydramine HCl 25 mg 12/11/23 09:25 Diphenhydramine 50 Mg/Ml Vial IVP PRN PRN Fentanyl 50 mcg 12/11/23 13:38 12/11/23 14:01 Fentanyl 100 Mcg/2 Ml Vial IVP 50 mcg Q2H PRN PRN Administration Fentanyl/Ropivacaine 200 ml 12/11/23 16:45 Fentanyl/Ropivacaine 2 Mcg/Ml And 0.1% 200 Ml Cadd Cassette EP DIRECTED MAKI Ringer's Solution 1,000 mls @ 250 mls/hr 12/11/23 08:00 12/11/23 16:02 IV 12/12/23 11:59 Infused INFUSION MAKI Infusion Penicillin G Potassium 3,000, 50 mls @ 100 mls/hr 12/11/23 13:00 12/11/23 16:30 000 units/ Sodium Chloride IVPB 100 mls/hr Q4H MAKI Administration Ringer's Solution 1,000 mls @ 150 mls/hr 12/11/23 13:15 12/11/23 16:01 IV 150 mls/hr INFUSION MAKI Administration Oxytocin/Sodium Chloride 30 unit in 500 mls @ 2 mls/hr 12/11/23 13:15 12/11/23 16:00 Pitocin/Normal Saline IV 12 milliunits/min INFUSION MAKI 12 mls/hr Titration Protocol 2 MILLIUNITS/MIN IV Miscellaneous Supplies 1 each 12/11/23 08:00 Iv Access IV DIRECTED MAKI Sodium Chloride 0 ml 12/11/23 07:55 12/11/23 10:09 Normal Saline Flush 10 Ml Syr IVP 10 ml PRN PRN Administration Sodium Chloride 0 ml 12/11/23 08:30 12/11/23 08:20 Normal Saline Flush 10 Ml Syr IVP 10 ml BID MAKI Administration Sodium Chloride 0 ml 12/11/23 07:55 Normal Saline 10 Ml Vial IJ DIRECTED PRN PFSH Active Problems Active Problems: Problem Status Onset Code PROM (premature rupture of membranes) Acute O42.90 Anemia affecting Acute O99.019 Uterine fibroids affecting Acute O34.10, D25.9 Susceptible to varicella (non-immune), currently Acute O09.899, Z28.39 History of palpitations in adulthood Acute Z86.79 Family history of Brugada syndrome Acute Z82.49 Migraine Chronic G43.909 Acute Z34.90 Acute adjustment disorder with mixed anxiety and depressed mood Acute F43.23 Rh negative state in antepartum period Acute O26.899, Z67.91 Medical History Medical History (Updated 12/11/23 @ 00:04 by Rosalva Dalal) Family history of cardiac disorder in mother pt's mother has hole in her heart. Patent Foramen ovale Anxiety Depressed affect Spontaneous Missed menses Delayed menses STI (sexually transmitted infection) Dysmenorrhea Tobacco Smoking/Tobacco Use Status: Never Passive smoking exposure: No Alcohol Alcohol Intake: never Substance Use Substance use: Never Substance use type: does not use Prental History History 2 2 Para 0 Hx # Term Pregnancies 0 Multiple births 0 Hx # Pregnancies 0 Ectopic pregnancies 0 AB induced 0 Hx Number of Living Children 0 AB spontaneous 1 Past Pregnancies Del. Date GA/Weeks # Preg Succ Route Wgt Sex Labor Lgth Anesth esia Location [facility] [place] 07/28/21 12 No Vital Signs and Lab Results Vital Signs Most Recent Vital Signs in EMR: Most Recent Vital Signs Temp Pulse Resp BP Pulse Ox 36.8 C 105 H 16 123/58 L 99 12/11/23 18:09 12/11/23 18:17 12/11/23 18:09 12/11/23 18:13 12/11/23 18:17 Lab Results 12/11/23 00:22 Blood Type / Crossmatch: 2 Antibody Screen POSITIVE 12/11/23 Complete Blood Count: 2 White Blood Count 12.56 10^3/uL (4.4-10.8) H 12/11/23 00:22 Red Blood Count 3.99 10^6/uL (3.93-5.22) 12/11/23 00:22 Hemoglobin 11.1 g/dL (11.2-15.7) L 12/11/23 00:22 Hematocrit 34.0 % (36.0-46.0) L 12/11/23 00:22 Platelet Count 190 10^3/uL (130-400) 12/11/23 00:22 Complete Metabolic Panel: 2 No Data to Display Liver Function Panel: 2 No Data to Display Coagulation Panel: 2 No Data to Display Cardiac Panel: 2 No Data to Display Arterial Blood Gas: 2 No Data to Display Venous Blood Gas: 2 No Data to Display Pancreas Panel: 2 No Data to Display Thyroid Panel: 2 No Data to Display Infectious Disease: 2 No Data to Display Blood Cultures: 2 No Data to Display Toxicology Panel: 2 No Data to Display Panel: 2 No Data to Display Anesthesia Assessment and Plan Anesthesia History Personal History: No History of Anesthesia Complications Family History: No Family History of Anesthesia Complications Exercise Tolerance Exercise Tolerance: Metabolic Equivalents>4 Pertinent Negatives Pertinent Negatives: No Symptoms of GERD Cardiac & Pulmonary Exam Cardiac Exam: Normal S1/S2 Heart Sounds Pulmonary Exam: Clear Bilateral Breath Sounds Implantable Cardiac Device Does patient have a Pacemaker or an ICD?: No Airway Exam Known Difficult Airway: No Mallampati Class: 2 Mouth Opening: Normal (> 3cm) Thyromental Distance: Greater than 3 cm Neck Range of Motion: Full ROM Neck Circumference: Normal Teeth Condition: Normal Dentition ASA Classification ASA Score: ASA 2 Emergency Case?: No NPO Status NPO Status: NPO Clear Liquids>2 hours Status Status: Confirmed (Full Term) Anesthesia Plan Resuscitation Status: Full Code Anesthesia Technique: Labor Epidural Airway Planned: Natural Airway Monitors Used: Standard Monitors Preoperative Comments:: Needle phobia, Anxiety
--- NOTE | 2023-12-11 18:20 | W.ANESNEU ---
Epidural/Spinal Catheter Date Performed: 12/11/23 Procedure Start: 17:20 Procedure Stop: 18:00 Requesting Provider: Rosalva Dalal Procedure Location: Obstetrics Reason Performed: Labor Epidural Standard Monitors Applied: Blood Pressure and SpO2 Patient Position: Sitting Sedation Given (Indicate Dose Given): No Sedation given Patient Mental Status: Awake Sterility: Hand Hygiene, Surgical Cap, Surgical Mask, Sterile Gloves, Sterile Drape/Sheet, Eye Protection and Chlorhexidine Procedure Location: L3-L4 Interspace Epidural Needle: Tuohy 18 Gauge Needle Length: 3.5 Inch Needle Approach: Midline Epidural Procedure: Skin Prepped, Sterile Drape Placed, 1% Lidocaine to skin and subcutaneous tissue with 25G needle, Tuohy Needle placed, Bone Contacted despite needle repositioning, JOSÉ to Saline Used, Epidural Catheter Placed, Negative Heme, Negative CSF Flow and Tuohy Needle Removed Catheter Placed?: Catheter Placed Test Dose (Indicate Dose Given): 3ml 1.5% Lidocaine with 1:200K Epinephrine Given and Negative Test Dose Loss of Resistance Depth (cm): 6 Catheter depth at skin (cm): 12 Dressing: [place]orbaview Dressing Placed, Tegaderm Applied, Mastisol Used and Dressing reinforced with Tape Epidural Provider Bolus (Indicate Dose Given): Total Ropivacaine 0.1% with Fentanyl 2mcg/ml Given from pump. (ml) Dose:: 6cc Additives (Indicate Dose Given ): None Infusion Medication: Medication Infusion Began Medication Infusion: Ropivacaine 0.1% with Fentanyl 2mcg/ml Maintenance Infusion Rate (ml/hour): 9 PCEA Bolus Dose (ml): 5 Post Procedure Pain score (0-10): 1 Block Level: T7 Paresthesia: None Ultrasound: Used to andreia site Number of Attempts (See previous attempts in note section): 2 Procedure Tolerated: No Complications and Patient tolerated well Procedure Outcome: Successful Performed By: Jomar Boone
--- NOTE | 2023-12-11 19:05 | W.PM.OBNL1 ---
Date of service: 12/11/23 Time of Service: 19:05 Informed Consent Informed Consent: Augmentation of Labor, Regional Anesthesia and Risk,Benefits,Alternatives Discussed Pelvic Exam Dilation: 8 station: 0 Contractions Monitor Mode: External (Novii) Contraction Frequency(min): 2-3 Intensity: Moderate/Strong Fetus A Monitor: External (US) (novii) Heart Rate Baseline: 130 Variability: Moderate (6-25 BPM) Categories: Category I Accelerations: 15 X 15 Decelerations: Early Amniotic Membrane Status: Ruptured Assessment and Plan Assessment and plan (1) PROM (premature rupture of membranes): Status: Acute Assessment and plan: A: Moderately effective epidural, pt able to rest between contractions Category 1 tracing, slow progress with pit at 12 u/min P: If no progression in 1 hr propose IUPC to more accurately assess adequacy of contraction pattern Continue pitocin augmentation and PCN prophylaxis Dr. Staton updated on pt status Qualifiers: PROM onset of labor timing: onset of labor more than 24 hours following rupture PROM gestational age: full term Qualified Code(s): O42.12 - Full-term premature rupture of membranes, onset of labor more than 24 hours following rupture (2) Slow slope active phase of labor: Status: Acute Subjective Interval history since last seen: Dozing between contractions since epidural was done, feels what she believes is the baby's shoulder in LLQ, also having some back pain, feels pelvic pressure with contractions and groans/moans with that but relaxes well afterwards.
--- NOTE | 2023-12-11 21:42 | W.PM.OBNL1 ---
Date of service: 12/11/23 Time of Service: 21:42 Informed Consent Informed Consent: Augmentation of Labor, Risk,Benefits,Alternatives Discussed and Other (IUPC and FSE) Pelvic Exam Dilation: 8.5 Effacement (%): 100 station: +1 (molding and caput) Contractions Monitor Mode: Internal Contraction Frequency(min): 2-3 IUPC resting tone (mmHg): 10 IUPC peak pressure (mmHg): 50 IUPC Jakin units: 150 Fetus A Monitor: Internal (FSE) Heart Rate Baseline: 135 Variability: Moderate (6-25 BPM) Categories: Category II Accelerations: 15 X 15 Decelerations: Early and Variable Recurrence: Intermittent Amniotic Membrane Status: Ruptured Assessment and Plan Assessment and plan (1) Slow slope active phase of labor: Status: Acute (2) PROM (premature rupture of membranes): Status: Acute Assessment and plan: A: Prolonged first stage of labor, prolonged ROM 4th PCN dose infusing, epidural in effect; pit @ 20u/min Category 2 due to occasional variable decel, periods of minimal variability interspersed with moderate, early's are recurrent Inadequate uterine contraction pattern w/MVU's <200 P: IUPC and FSE placed for EFM guidance on pitocin titration Dr. Staton aware of current pt and status Will continue pitocin up to 30 u/min for adequate contraction pattern Reassess for progression to 2nd stage in 2 hrs Qualifiers: PROM onset of labor timing: onset of labor more than 24 hours following rupture PROM gestational age: full term Qualified Code(s): O42.12 - Full-term premature rupture of membranes, onset of labor more than 24 hours following rupture Objective Vital Signs Reviewed: Yes Objective Narrative Objective Narrative: Discussion with Dr. Staton regarding slow progress Now 8-9 cm, molding and caput evident, IUPC and FSE inserted with pt consent Pitocin at 20u/min Vital signs stable, afebrile Subjective Interval history since last seen: pt's back still hurts but in general pt has been much more comfortable, dozes between contractions, using nitrous during contractions and is pushing [employer].
[2023-12-12] VITALS (21 sets, daily range): BP systolic 76–136; BP diastolic 50–90; PULSE 84–149; RESP 16–20; TEMP 36.3–37.2; O2SAT 96–100
--- NOTE | 2023-12-12 00:05 | OBCE_ITS ---
Date of service: 12/12/23 Time of Service: 00:06 Assessment and Plan Assessment and plan (1) Slow slope active phase of labor: Status: Acute Assessment and plan: Patient has agreed to a primary delivery for arrest of descent. Informed consent was obtained. I explained to her the risks of the procedure including the risk of infection, damage to surrounding structures including blood vessels bowel bladder ureters. I explained the risk of bleeding possible hysterectomy possible . Her questions were answered. ORT was notified (2) PROM (premature rupture of membranes): Status: Acute Assessment and plan: She has received antibiotics for prolonged rupture membranes with GBS negative rectal vaginal culture. She will received routine preoperative antibiotics prior to surgery. Qualifiers: PROM onset of labor timing: onset of labor more than 24 hours following rupture PROM gestational age: full term Qualified Code(s): O42.12 - Full-term premature rupture of membranes, onset of labor more than 24 hours following rupture History of Present Illness History of Present Illness Chief Complaint: Arrested dilation in labor Narrative: Patient is a 23-year-old G2, P0 female currently 40W 4D EGA who has been followed by the [facility] service for care. Patient has spontaneous rupture of membranes 12/10/2023 with onset of active labor early this morning. At the time of admission to the center she was 5 to 6 cm dilated with contractions. She has gone on to progress to 9 cm dilation after oxytocin augmentation of labor and epidural for labor analgesia. Despite regular painful contractions and seemingly adequate contraction strength as documented by and uterine pressure catheter there has been no descent of the vertex from 0 station throughout the day. She has developed Some molding. heart rate tracing is category 1 with early decelerations of the heart rate with uterine contractions. Based on the patient's protracted labor pattern and no appreciable change in descent of the vertex with 5 hours of oxytocin augmentation I was asked by Vilma Dalal CNM to evaluate the patient for possible delivery. Consults Consult date: 12/10/01 Review of Systems Narrative: Painful contractions involuntary urge to push All systems reviewed & are unremarkable except as noted in HPI and below PFSH All Active Problems (Updated 12/11/23 @ 19:09 by Rosalva Dalal) Slow slope active phase of labor (Acute) PROM (premature rupture of membranes) (Acute) Anemia affecting (Acute) Uterine fibroids affecting (Acute) Susceptible to varicella (non-immune), currently (Acute) History of palpitations in adulthood (Acute) Family history of Brugada syndrome (Acute) pt's sister Migraine (Chronic) (Acute) Acute adjustment disorder with mixed anxiety and depressed mood (Acute) Rh negative state in antepartum period (Acute) Medical History (Updated 12/11/23 @ 19:09 by Rosalva Dalal) Family history of cardiac disorder in mother pt's mother has hole in her heart. Patent Foramen ovale Anxiety Depressed affect Spontaneous Missed menses Delayed menses STI (sexually transmitted infection) Dysmenorrhea Family History Father Hypertension Mother Fibromyalgia Social History Smoking/Tobacco Use Status: Never Smoking risk assessment performed?: Yes Alcohol Intake: never Drug use: Never Substance use type: does not use Counseling given: No Housing: house Do you feel safe at home: Yes Do you feel safe in your relationship?: Yes Female Reproductive History Menstrual control method: none History History 2 2 Para 0 Hx # Term Pregnancies 0 Multiple births 0 Hx # Pregnancies 0 Ectopic pregnancies 0 AB induced 0 Hx Number of Living Children 0 AB spontaneous 1 Past Pregnancies Del. Date GA/Weeks # Preg Succ Route Wgt Sex Labor Lgth Anesth esia Location [facility] 07/28/21 12 No Exam Narrative Exam Narrative: Lying in Semi-Carias's position tolerating regular contractions with the assistance of nitrous oxide Const General: no acute distress Nutritional Appearance: well nourished Orientation: alert, awake and oriented x3 Neck Neck: normal visual inspection Resp Effort & Inspection: normal respiratory effort Auscultation: clear to auscultation bilaterally Cardio Rate: regular rate Rhythm: regular rhythm GI Palpation: other (Gravid) Manual OB Exam: dilated 9, effaced fully, station 0 and other Other: Caput present Skin General skin exam: no rashes or lesions noted Neuro General: deep tendon reflexes 2+ bilaterally Cognition: normal cognition Speech: speech normal Gait: normal gait Motor: other (1 beat of lower extremity clonus bilaterally) Extrem General: normal to inspection Psych Appearance: grossly normal Mental Status: mental status grossly normal Speech and Movement: slurred speech (Patient has been using nitrous oxide for labor analgesia) Mood: congruent mood Affect: normal affect Attitude: cooperative Thought Process: normal Thought Content: normal Insight: fair Judgment: fair Results Last Vital Signs Temp 99.0 F 12/11/23 22:59 Pulse 112 H 12/12/23 00:02 Resp 16 12/11/23 23:00 BP 136/70 12/12/23 00:02 Pulse Ox 100 12/11/23 22:59 Labs 12/11/23 00:22 Labs: Laboratory Results - last 24 hr 12/11/23 00:22 WBC 12.56 H RBC 3.99 Hgb 11.1 L Hct 34.0 L MCV 85 MCH 27.8 MCHC 32.6 RDW 20.1 H Plt Count 190 MPV 11.3 H ABO/Rh O Negative Antibody Screen POSITIVE Antibody Identification Anti-D
[2023-12-12] MEDS: AZITHROMYCIN 500 MG in Normal Saline 250 ML 250 MG IVPB (00:12)
[2023-12-12] MEDS: ceFAZolin 2 GM/50 ML BAG IVPB (01:02)
[2023-12-12] MEDS: Bupivacaine 0.25% Pres-Free 30 ML VIAL (01:20)
--- NOTE | 2023-12-12 01:40 | PLAC_PTH ---
PATIENT: Andres Aviles LOC: OBS U#:[id number] AGE/SX: 23/F ROOM: OBS.303 RE12/10/[address]: Rosalva Dalal CNM : 2000 BED: A DIS: 12/14/2023 SPEC #: [id number] RECD: 12/12/23 12:57 STATUS: ALOK REQ #: [id number] MARA: 12/12/23 01:[address]: Rosalva Dalal DEPT: Surgical Specimen RECD BY: Sue Sagastume ENTERED: 12/12/23 12:57 SP TYPE: PLAC OTHR DR: Mariola Hoff Tissues: 1 - PLACENTA (3RD TRIMESTER) Procedures: GROSS AND MICRO LEVEL 5 Comments: [id number]
[2023-12-12] MEDS: Lactated Ringers 1,000 ML 150 ML IV (02:11)
--- NOTE | 2023-12-12 02:32 | W.PM.OP ---
Date of service: 12/12/23 Time of Service: 02:37 Operative Note Operative Note DATE OF PROCEDURE: 12/12/23 PRE-OP DIAGNOSIS: IUP @ 40w4d EGA. Arrest of descent, prolonged rupture of membranes. POST-OP DIAGNOSIS: same bradycardia in operating room, unplanned maternal intubation PROCEDURE: Primary low-transverse delivery SURGEON: Diamante Staton FRONT END TECHNICIAN: Rosalva Dalal ANESTHESIA TYPE: Local By Surgeon, General LMA/ETT and Spinal Refer to Anesthesia Record ESTIMATED BLOOD LOSS: 700 PATHOLOGY: other (Placenta to pathology. Cord blood to lab. Umbilical arterial blood gas to lab) COMPLICATIONS: None Patient was transported to: PACU Patient's condition: stable Indications: 23-year-old G2 now P1 female with spontaneous rupture membranes x48hr and arrested descent of vertex with regular painful contractions. Pt presented to 12/10/23 ~ 2300 after 24hrs of SROM. She was ines regularly and initial vaginal exam 3cm, -2 station. By 0700 12/11/23 cervix had dilated to 6cm and vertex was -1. 12/11/23 @ 1300 cervical exam with minimal change and 0 station . Oxytocin augmentation of labor was initiated at that time. At the time of her labor epidural placement at 1800 cervical exam was 8cm, 0 station. There was little descent from 0 station at time of vaginal exam at 2300. Caput and moulding present. monitoring strip Category 2 with early decels of FHR with contractions. I counseled pt and her family to proceed with primary delivery for arrest of descent. Findings: Viable male infant in the OP position, clear amniotic fluid, Apgars: 3 at 1 minute, 7 at 5 minutes, 9 at 10minutes. Infant weight: 7lb8oz Umbilical arterial blood gas: pH 7.04, CO2 74. BE -11. Procedure Description: Patient was taken to the operating room she is placed in the sitting position and epidural catheter was removed. The epidural infusion had be stopped approximately one hour prior. Spinal anesthesia was administered without difficulty. She was then placed in the dorsal supine position with a leftward tilt. Auscultation with heart rate by Doppler showed the heart rate to be between 80 and 95 bpm. Decision was made to proceed with the delivery under general anesthesia because of bradycardia. This was explained to the patient and her family member and verbal consent was obtained. SCDs had been in place prior to arrival in the OR. The vagina was prepped with Betadine and a Rossi catheter to gravity drainage was placed. The abdomen was prep sterile drape was applied to the abdomen and a surgical timeout was performed. After general endotracheal anesthesia was administered a Pfannenstiel skin incision was made approximately 2 cm superior to the pubic symphysis using a scalpel and the underlying subcutaneous tissue dissected using a scalpel. The rectus fascia was then nicked in the midline and the fascial incision extended laterally using a scalpel. 2 Hawk clamps were applied to the superior rectus fascia and the rectus fascia was dissected off of the underlying rectus muscles using blunt technique. A similar technique was carried out on the inferior rectus fascia. Rectus muscles were then in the midline and the peritoneum entered bluntly. The peritoneal incision was extended laterally using blunt technique. A bladder blade was inserted to retract the bladder away from the operative field. The vesicle-uterine peritoneum over lower uterine segment was incised using a scalpel and the lower uterine segment incision was extended in a transverse fashion using blunt technique. The amniotic sac was ruptured with clear amniotic fluid noted. A single gloved hand was placed into the uterine cavity and the head was successfully delivered through the uterine incision followed by the trunk and extremities with the assistance of fundal pressure. The cord was doubly clamped and cut and the infant handed off to the waiting pediatric team. A segment of umbilical cord was obtained and the placenta was extracted with a combination of fundal massage and gentle cord traction. The uterus was exteriorized cleared of all clots and debris and the uterine incision reapproximated with a running lock suture of 0 Vicryl followed by a second imbricating suture of 0 Vicryl in interrupted fashion. Two sutures of 0-Vicryl were placed around the L uterine vessels to achieve satisfactory hemostasis. The uterus was returned to the abdomen and the paracolic gutters cleared of all clots and debris. Uterine incision and the along with the bladder flap and the abdominal wall were reinspected and noted to be hemostatic. The rectus fascia was reapproximated with a running suture of 0 Vicryl. space within the subcutaneous tissue closed with a running suture of 2-0 Vicryl. The skin incision was reapproximated with a subcuticular closure of 4-0 Monocryl. Steri strips and a Mepilex dressing was applied. The uterus was massaged for any remaining clots and debris. The patient was transported to recovery area in stable condition. All sponge, lap, and needle counts correct x2.
--- NOTE | 2023-12-12 02:37 | W.ANESNEU ---
Epidural/Spinal Cath. Removal Date Performed: 12/12/23 Procedure Time: 00:55 Catheter Removal Type: Epidural Catheter Procedure Location: Operating Room Patient Position: Sitting Catheter Removal Procedure: Dressing Removed, Catheter Removed without Resistance and Catheter Tip Intact Paresthesia: None Procedure Tolerated: No Complications and Patient tolerated well Procedure Outcome: Successful Performed By: Jomar Boone
--- NOTE | 2023-12-12 02:39 | W.ANESPOSTOP ---
Postoperative Evaluation Date, Time and Location Date Performed: 12/12/23 Time Performed: 02:39 Patient Location: PACU Vital Signs Most Recent Imported Vital Signs: Most Recent Vital Signs Temp Pulse Resp BP Pulse Ox 36.4 C L 125 H 16 115/90 100 12/12/23 02:30 12/12/23 02:36 12/12/23 02:36 12/12/23 02:36 12/12/23 02:36 Pain Score Most Recent Pain Score: Most Recent Pain Score Pain Level 0 12/12/23 02:36 Assessment Mental Status: Awake (Alert & Oriented to Patient Baseline) Airway and Respiratory Function: Patent airway with normal (patient baseline) respiratory exam Cardiovascular Function: Hemodynamically Stable Hydration Status: Adequately Hydrated Nausea & Vomiting: No Nausea or Vomiting Pain: Pt. Denies Any Pain Peripheral Nerve Block: Patient did not receive a nerve block
[2023-12-12] MEDS: Ketorolac 30 MG/ML VIAL IVP ×3 (08:00→20:55)
[2023-12-12] MEDS: Normal Saline Flush 10 ML SYR IVP ×2 (14:11→20:56)
--- NOTE | 2023-12-12 18:28 | W.PM.OBPNV1 ---
Date of service: 12/12/23 Time of Service: 18:28 Assessment and Plan Assessment and plan (1) Arrest of descent, delivered, current hospitalization: Status: Acute (2) delivery delivered: Status: Acute Assessment and plan: Satisfactory recovery from surgery. Plan is to assist with actives of daily living and breast-feeding. Pain well-controlled with nonsteroidal anti-inflammatories. Subjective Subjective Patient comments: Pain well controlled and Tolerating diet [place] baby status: Doing well, Nursing well, Rooming in and Strong Bonding Observed [place] feeding status: Exclusively breast feeding Narrative: Patient reports has been sleepy during the day did latch on earlier today. Exam Physical Exam Vital signs: Temp Pulse Resp BP Pulse Ox 97.9 F 107 H 18 112/71 98 12/12/23 15:15 12/12/23 15:15 12/12/23 15:15 12/12/23 15:15 12/12/23 15:15 Constitutional Constitutional: no acute distress Respiratory Exam Respiratory Exam: Normal Abdominal Exam Comments: Mepilex dressing intact, no drainage present. Fundal Exam Fundus: Below Umbilicus and Firm Extremities Exam Extremity Exam: Normal (SCDs in place) Detailed Skin Exam Skin: Present intact Psychiatric Exam Psychiatric Exam: Normal (I reviewed events leading up to decision to proceed with delivery and intubation at time of delivery. Questions answered) Results Hemoglobin/Hematocrit: Hgb 11.1 g/dL (11.2-15.7) L 12/11/23 00:22 Hct 34.0 % (36.0-46.0) L 12/11/23 00:22 Abnormal Lab Findings: Abnormal Labs 12/11/23 00:22 WBC 12.56 H Hgb 11.1 L Hct 34.0 L RDW 20.1 H MPV 11.3 H
[2023-12-13] VITALS (12 sets, daily range): BP systolic 104–119; BP diastolic 64–82; PULSE 87–107; RESP 17–20; TEMP 36.6–36.8; O2SAT 97–99
[2023-12-13] MEDS: Acetaminophen 325 MG TAB 650 MG PO ×4 (03:23→22:20)
[2023-12-13] MEDS: Ibuprofen 600 MG TAB PO ×4 (03:24→22:20)
[2023-12-13 08:28] LABS: HCT 22.1 % (36.0-46.0); MCHC 31.7 % (32.0-36.0); MCV 88 fL (80-95); MPV 10.5 fL (8.0-11.0); Platelet Count 159 10^3/uL (130-400); RDW 21.2 % (11.7-14.6); RDW-SD 66.9 fL; WBC 13.36 10^3/uL (4.4-10.8)
[2023-12-13] MEDS: Varicella Virus Vaccine (Live) 0.5 ML SC (09:21)
--- NOTE | 2023-12-13 09:41 | OBPPV_ITS ---
Date of service: 12/13/23 Time of Service: 09:41 Assessment and Plan Assessment and plan (1) delivery delivered: Status: Acute Assessment and plan: POD2 pLTCS. Pt remains comfortable able to ambulate in room. Breast feeding satisfactorily. Pt has no questions at this time regarding circumstances of delivery. (2) Postoperative anemia due to acute blood loss: Status: Acute Assessment and plan: I discussed today's H/H with pt. I recommended transfusion of 1 unit of PRBC this am. Pt is agreeable to the transfusion. Recheck CBC in am. Subjective Subjective Patient comments: Pain well controlled and Tolerating diet Patient's Mood: Tired of being poked [place] baby status: Doing well, Nursing well, Rooming in and Strong Bonding Observed feeding status: Exclusively breast feeding Exam Physical Exam Vital signs: Temp Pulse Resp BP Pulse Ox 97.9 F 88 18 104/66 97 12/13/23 08:44 12/13/23 08:44 12/13/23 08:44 12/13/23 08:44 12/13/23 08:44 Vital Signs Reviewed: Yes Notable Details: Pulse elevated during night. Afebrile Narrative: Pt reports feeling tired. Constitutional Constitutional: no acute distress Respiratory Exam Respiratory Exam: Normal Cardiovascular Exam Cardiovascular Exam: Normal Abdominal Exam Abdomen: Tender Comments: non-tender to palpation. No ecchymosis or erythema Fundal Exam Fundus: Below Umbilicus and Firm Extremities Exam Comment: No LE edema. Pale and cool to touch Back/Spine/Pelvis Exam Back Exam: Normal (site of previous epidural, spinal w/o erythema) Neurological Exam Neurological Exam: Normal Psychiatric Exam Psychiatric Exam: Normal Results Hemoglobin/Hematocrit: Hgb 7.0 g/dL (11.2-15.7) L* D 12/13/23 08:20 Hct 22.1 % (36.0-46.0) L 12/13/23 08:20 Abnormal Lab Findings: Abnormal Labs 12/11/23 12/13/23 00:22 08:20 WBC 12.56 H 13.36 H RBC 2.50 L Hgb 11.1 L 7.0 L* D Hct 34.0 L 22.1 L MCHC 31.7 L RDW 20.1 H 21.2 H MPV 11.3 H
[2023-12-13] MEDS: RHO(D) Immune Globulin 1,500 UNIT Syringe 1500 UNIT IM (16:49)
[2023-12-14 06:30] LABS: HCT 26.8 % (36.0-46.0); HGB 8.6 g/dL (11.2-15.7); MCH 28.3 pg (27.0-33.0); MCHC 32.1 % (32.0-36.0); MCV 88 fL (80-95); Platelet Count 181 10^3/uL (130-400); RBC 3.04 10^6/uL (3.93-5.22); RDW-SD 63.2 fL; WBC 10.44 10^3/uL (4.4-10.8)
[2023-12-14] MEDS: Acetaminophen 325 MG TAB 650 MG PO ×2 (06:34→16:02)
[2023-12-14] MEDS: Ibuprofen 600 MG TAB PO ×2 (06:34→16:02)
[2023-12-14 06:44] LABS: RDW 20.2 % (11.7-14.6)
[2023-12-14 08:25] VITALS: BP 119/85; PULSE 102; RESP 16; TEMP 36.5; O2SAT 98
--- NOTE | 2023-12-14 10:02 | W.PM.OBPNV1 ---
Date of service: 12/14/23 Time of Service: 10:02 Assessment and Plan Assessment and plan (1) Postoperative anemia due to acute blood loss: Status: Acute Assessment and plan: s/p transfusion of 1 unit of PRBC. feels better today. Will encourage pt to continue vitamins after discharge. (2) delivery delivered: Status: Acute Assessment and plan: Will plan on discharge to home this afternoon with f/u in [facility] in one week for wound assessment. Subjective Subjective Interval history: POD 3 pLTCS. Pain controlled with NSAIDs. Pt using breast marquez during . s/p transfusion of 1 unit of PRC 12/13/23. States that she feels better after receiving transfusion Patient comments: Pain well controlled and Tolerating diet baby status: Doing well, Nursing well, Rooming in and Strong Bonding Observed [place] feeding status: Exclusively breast feeding Exam Physical Exam Vital signs: Temp Pulse Resp BP Pulse Ox 97.7 F 102 H 16 119/85 98 12/14/23 08:25 12/14/23 08:25 12/14/23 08:25 12/14/23 08:25 12/14/23 08:25 Vital Signs Reviewed: Yes Notable Details: tachycardia with movement about room. No other sx of acute blood loss. Constitutional Constitutional: no acute distress Neck Exam Neck Exam: Normal Respiratory Exam Respiratory Exam: Normal Cardiovascular Exam Cardiovascular Exam: Normal Abdominal Exam Abdomen: Tender Comments: Mepilex dressing remains in place. Fundal Exam Fundus: Below Umbilicus and Firm Rectal Exam Rectal Exam: Not Done Extremities Exam Extremity Exam: Normal and Normal Capillary Refill Neurological Exam Neurological Exam: Normal Psychiatric Exam Psychiatric Exam: Normal Results Hemoglobin/Hematocrit: Hgb 8.6 g/dL (11.2-15.7) L 12/14/23 06:22 Hct 26.8 % (36.0-46.0) L 12/14/23 06:22 Abnormal Lab Findings: Abnormal Labs 12/11/23 12/13/23 12/14/23 00:22 08:20 06:22 WBC 12.56 H 13.36 H RBC 2.50 L 3.04 L Hgb 11.1 L 7.0 L* D 8.6 L Hct 34.0 L 22.1 L 26.8 L MCHC 31.7 L RDW 20.1 H 21.2 H 20.2 H MPV 11.3 H Crossmatch See Detail
[2023-12-14 12:05] VITALS: BP 115/79; PULSE 96; RESP 16; TEMP 36.8; O2SAT 98
--- NOTE | 2023-12-14 15:21 | DSE_ITS ---
Date of service: 12/14/23 Time of Service: 15:22 DS: Diagnosis Discharge Diagnosis (1) Postoperative anemia due to acute blood loss: Status: Acute (2) delivery delivered: Status: Acute Discharge Plan Disposition Patient Disposition: Home Condition: Improving Discharge Details Reason For Visit: PROM at Term Admit Date/Time: 12/10/23 23:37 Admit Provider: Rosalva Dalal Attending Provider: Rosalva Dalal Primary Care Provider: Mariola Hoff Home Meds and New Rx's Prescriptions: No Action prenat.vits,cheryl,afu-nftj-vplag Tablet 1 tab PO DAILY ferrous sulfate 325 mg (65 mg iron) tablet 325 mg PO DAILY Qty: 60 4RF Discharge Instructions Additional Instructions: Keep your appointment with Dr. Staton for your bandage removal. Prescription strength Ibuprofen 600mg ever 6hrs as needed for pain has been called to [facility] in [facility] Stand Alone Forms: BC Instructions, BC Discharge Inst [facility] Activity:: Activity as Tolerated Equipment/Supplies:: No Equipment Needed Diet:: As Tolerated Discharge Orders Discharge Orders: Discharge Order (Routine); Ordered 12/14/23 Ordered By: Diamante Staton OB:DS Summary Summary Delivery Method: Primary Episiotomy Description: None Laceration Description: None Laceration Extension: N/A complications OB DS: none Contraception Discussed Contraception Discussed: Yes (Progestin only pill while ) Contraceptive Plan: Control Pill/Patch, Lilly Infant Gender-Baby A: Male weight: 7 lb 7.931 oz Disposition of Baby A: Home Infant Gender-Baby B: Male Status at Discharge Functional status at discharge: independent ambulation Overall status at discharge: patient is progressing back to baseline Mental Status: mental status grossly normal Speech and Movement: speech and movement normal Mood: congruent mood Affect: normal affect Time Spent with Patient providing and/or coordinating discharge services: Less than 30 minutes Quality:SDOH Health Related Social Needs: Health related social needs personal safety Exam Physical Exam Vital signs: Temp Pulse Resp BP Pulse Ox 98.2 F 96 H 16 115/79 98 12/14/23 12:05 12/14/23 12:05 12/14/23 12:05 12/14/23 12:05 12/14/23 12:05 Vital Signs Reviewed: Yes Notable Details: tachycardia with movement about room. No other sx of acute blood loss. Constitutional Constitutional: no acute distress Neck Exam Neck Exam: Normal Respiratory Exam Respiratory Exam: Normal Cardiovascular Exam Cardiovascular Exam: Normal Abdominal Exam Abdomen: Tender Comments: Mepilex dressing remains in place. Fundal Exam Fundus: Below Umbilicus and Firm Rectal Exam Rectal Exam: Not Done Extremities Exam Extremity Exam: Normal and Normal Capillary Refill Neurological Exam Neurological Exam: Normal Psychiatric Exam Psychiatric Exam: Normal PFSH All Active Problems (Updated 12/13/23 @ 09:46 by Diamante Staton MD) Postoperative anemia due to acute blood loss (Acute) delivery delivered (Acute) 12/12/2023. Kelli Zamorano. 7lb8oz. arrest of descent. Arrest of descent, delivered, current hospitalization (Acute) Slow slope active phase of labor (Acute) PROM (premature rupture of membranes) (Acute) Anemia affecting (Acute) Uterine fibroids affecting (Acute) Susceptible to varicella (non-immune), currently (Acute) History of palpitations in adulthood (Acute) Family history of Brugada syndrome (Acute) pt's sister Migraine (Chronic) (Acute) Acute adjustment disorder with mixed anxiety and depressed mood (Acute) Rh negative state in antepartum period (Acute) Medical History (Updated 12/13/23 @ 09:46 by Diamante Staton MD) Family history of cardiac disorder in mother pt's mother has hole in her heart. Patent Foramen ovale Anxiety Depressed affect Spontaneous Missed menses Delayed menses STI (sexually transmitted infection) Dysmenorrhea Family History Father Hypertension Mother Fibromyalgia Social History Smoking/Tobacco Use Status: Never Smoking risk assessment performed?: Yes Alcohol Intake: never Drug use: Never Substance use type: does not use Counseling given: No Housing: house Do you feel safe at home: Yes Do you feel safe in your relationship?: Yes Female Reproductive History Menstrual control method: none History History 2 Para 1 Hx # Term Pregnancies 0 Multiple births 0 Hx # Pregnancies 0 Ectopic pregnancies 0 AB induced 0 Hx Number of Living Children 1 AB spontaneous 1 Past Pregnancies Del. Date GA/Weeks # Preg Succ Route Wgt Sex Labor Lgth Anesth esia Location Prov [facility] 07/28/21 12 No 12/11/23 No Yes Male aoc/JK transfusion other Delivery Date: 12/11/23 Last Updated by: MD Jaun Seymour. SROM x 48hrs, arrest of descent at 0 station. bradycardia in OR at time of spinal resulting in intubation. Apgars @1/5/10 min: 3/7/9. DS: Data Vitals/I&O Vitals and I&O: Vital Signs Temperature 98.2 F 12/14/23 12:05 Temperature Source Oral 12/14/23 12:05 Pulse 96 H 12/14/23 12:05 Pulse Rhythm Regular 12/14/23 08:25 Respiratory Rate 16 12/14/23 12:05 Respiratory Depth Normal 12/13/23 20:00 Blood Pressure 115/79 12/14/23 12:05 Blood Pressure Mean 91 12/14/23 12:05 Pulse Oximetry 98 12/14/23 12:05 Respiratory End-tidal CO2 33 12/12/23 02:36 Oxygen Delivery Method Room Air 12/13/23 15:20 Oxygen Flow Rate 0 12/13/23 15:20 Pain Level 1 12/14/23 12:05 Intake & Output 12/13/23 12/14/23 12/14/23 23:59 11:59 23:59 Intake Total 500 / 500 Balance 500 / -500 Intake: Blood Product 500 / 500 Rbc Leuko Reduced Unit 500 / 500 [id number] Data Completed and Pending Labs on day of discharge: Labs from last 24 hours 12/14/23 12/11/23 06:22 00:22 WBC 10.44 RBC 3.04 L Hgb 8.6 L Hct 26.8 L MCV 88 MCH 28.3 MCHC 32.1 RDW 20.2 H Plt Count 181 MPV 10.0 ABO/Rh O Negative Antibody Screen POSITIVE Antibody Identification Anti-D Rhogam Unit Number [id number] Crossmatch See Detail Unit Expiration Date 06/20/24 Product Lot # [id number]
[2023-12-14 16:00] VITALS: BP 136/88; PULSE 95; RESP 16; TEMP 36.7; O2SAT 97
== END 2023-12-14 19:20 | disposition home or self-care (01) | DRG 787 ==
PROVIDERS: Obstetrics & Gynecology Gynecology; Admitting Provider Advanced Practice Midwife; PCP Family Medicine; Visit Provider Advanced Practice Midwife
PROC: 10D00Z1 Extraction of Products of Conception, Low, Open Approach (ICD-10-PCS; CPT 59514; principal; 2023-12-12 00:55)
DX: O42.12 Full-term premature rupture of membranes, onset of labor more than 24 hours following rupture (principal); D62 Acute posthemorrhagic anemia; O99.354 Diseases of the nervous system complicating childbirth; O76 Abnormality in fetal heart rate and rhythm complicating labor and delivery; Z37.0 Single live birth; Z3A.40 40 weeks gestation of pregnancy; O48.0 Post-term pregnancy; O75.89 Other specified complications of labor and delivery; Z67.91 Unspecified blood type, Rh negative; G43.909 Migraine, unspecified, not intractable, without status migrainosus; F43.23 Adjustment disorder with mixed anxiety and depressed mood; O34.13 Maternal care for benign tumor of corpus uteri, third trimester; O75.81 Maternal exhaustion complicating labor and delivery; O99.02 Anemia complicating childbirth; O99.344 Other mental disorders complicating childbirth; O62.1 Secondary uterine inertia
CPT/HCPCS: 59514; 36415; 85027; 85461; 86850; 86900; 86901; 86920; 90384; 90716; 86870; 88307; J0131; J0456; J0665; J0690; J1100; J1885; J2274; J2371; J2405; J2540; J2704; J2790; J3010; P9016

== ENCOUNTER 2024-01-23 12:57 | Outpatient (REF) | payer MEDICAID, SELFPAY ==
--- NOTE | 2024-01-23 11:15 | PAPFT_PTH ---
PATIENT: Andres Aviles LOC: [facility] U#:[id number] AGE/SX: 23/F ROOM: RE01/23/[address]: Kaela Leon : 2000 BED: DIS: 01/23/2024 SPEC #: [id number] RECD: 01/23/24 13:28 STATUS: ALOK RECarmen #: [id number] MARA: 01/23/24 11:[address]: Kaela Leon DEPT: [facility] Cytology RECD BY: Sue Sagastume ENTERED: 01/23/24 13:28 SP TYPE: PAPFT OTHR DR: Mariola Hoff Tissues: 1 - CX/ENDOCX FOR PAP SMEARS Procedures: PAP THIN PREP/[facility] Screening Comments: [id number] (CHLAMYDIA/GC)
[2024-01-24 13:40] LABS: Chlamydia Result Negative (Negative); GC Result Negative (Negative)
== END 2024-01-23 12:58 | disposition home or self-care (01) ==
LOC: LBN 12:57
PROVIDERS: PCP Family Medicine; Visit Provider Advanced Practice Midwife
DX: N89.8 Other specified noninflammatory disorders of vagina (principal); Z39.1 Encounter for care and examination of lactating mother; Z39.2 Encounter for routine postpartum follow-up; Z63.5 Disruption of family by separation and divorce
CPT/HCPCS: 87491; 87591; 88142; 87480; 87510; 87660

== ENCOUNTER 2024-05-01 10:03 | Outpatient (REF) | payer MEDICAID, SELFPAY | END 2024-05-01 10:04 | disposition home or self-care (01) | LOC: LBN 10:03 | PROVIDERS: PCP Family Medicine; Visit Provider Nurse Practitioner Women's Health | DX: R30.0 Dysuria (principal) | CPT/HCPCS: 87077; 87086 ==